=== PATIENT | female | born 1990 | race Two or more races ===

== ENCOUNTER 2017-09-04 15:06 | Observation (INO) | payer MEDICAID ==
[~2017-09-04] VITALS: Ht 167.6 cm; Wt 99.8 kg
[2017-09-04] MEDS ORDERED: PREN1TAB78 PO (16:05)
[2017-09-04] MEDS ORDERED: ACETAMINOPHEN 500MG TABLET PO NR (20:15)
== END 2017-09-04 20:20 | disposition home or self-care (01) ==
LOC: L&D 15:06
PROVIDERS: ADMIT Obstetrics & Gynecology; ATTEND Obstetrics & Gynecology
DX: O99.89 Other specified diseases and conditions complicating pregnancy, childbirth and the puerperium (principal); M54.5 Low back pain; Z3A.31 31 weeks gestation of pregnancy
CPT/HCPCS: 76805; 76818; G0378; 99281